=== PATIENT | female | born 1985 | race Caucasian/White ===

== ENCOUNTER 2018-08-02 10:12 | Inpatient (IN) | payer OTHER ==
[~2018-08-02] VITALS: Ht 165.1 cm; Wt 63.5 kg
[2018-08-30] MEDS ORDERED: SYNTHROID50 MCG PO (11:47)
== END 2018-09-01 13:17 | DRG 807 ==
LOC: LDR 08-30 10:19 → SURG-SUITE 08-30 17:29 → OB/GYN 09-07 10:09
PROC: 10E0XZZ Delivery of Products of Conception, External Approach (ICD-10-PCS; principal; 2018-08-30)
PROC: 4A1HXCZ Monitoring of Products of Conception, Cardiac Rate, External Approach (ICD-10-PCS; 2018-08-30)
PROC: 0KQM0ZZ Repair Perineum Muscle, Open Approach (ICD-10-PCS; 2018-08-30)
DX: O70.1 Second degree perineal laceration during delivery (principal); Z37.0 Single live birth; Z3A.38 38 weeks gestation of pregnancy